=== PATIENT | male | born 1995 | race Caucasian/White ===

== ENCOUNTER 2017-09-15 05:04 | Inpatient (IN) | payer OTHER ==
[~2017-09-15] VITALS: Ht 165.1 cm; Wt 66.4 kg
[2017-09-15 11:33] VITALS: BP 125/65; PULSE 70; RESP 18; TEMP 98.7; O2SAT 96
[2017-09-15] MEDS: REMOVE OLD PATCH T-DERMAL SCH (15:51)
[2017-09-15] MEDS: NICOTINE 21 MG/24 HR PATCH T-DERMAL SCH (16:19)
[2017-09-15] MEDS: hydrOXYzine HCL 50 MG TAB PO SCH ×2 (16:19→21:15)
[2017-09-15 18:17] VITALS: BP 114/64; PULSE 71; RESP 18; TEMP 98.8; O2SAT 100
[2017-09-15] MEDS ORDERED: risperiDONE 1 MG TAB PO SCH (21:00)
[2017-09-15] MEDS ORDERED: diphenhydrAMINE HCL 50 MG CAP PO SCH (21:00)
[2017-09-16] MEDS: hydrOXYzine HCL 50 MG TAB PO SCH (04:00)
[2017-09-16 05:38] VITALS: BP 97/52; PULSE 62; RESP 18; TEMP 97.4; O2SAT 99
[2017-09-16 08:11] LABS: ANION GAP 7 MEQ/L (5-15); BICARBONATE 28.9 MEQ/L (21.0-32.0); BLOOD UREA NITROGEN 14 MG/DL (7-18); CHLORIDE 105 MEQ/L (98-107); GLOMERULAR FILTRATION RATE 126 ML/MIN (>89); POTASSIUM 4.2 MEQ/L (3.5-5.1); SODIUM (NA) 141 MEQ/L (136-145)
[2017-09-16 08:13] LABS: HDL CHOLESTEROL 53.2 MG/DL (40.0-60.0); LDL CHOLESTEROL 87 MG/DL (0-99)
[2017-09-16] MEDS: NICOTINE 21 MG/24 HR PATCH T-DERMAL SCH (09:00)
[2017-09-16] MEDS: REMOVE OLD PATCH T-DERMAL SCH (09:00)
--- NOTE | 2017-09-16 09:26 | HHI.HP ---
Provisional Diagnosis Admission Date Sep 15, 2017 at 11:11 [place] I. 1. Other psychotic disorder Rule out schizophrenia 2. Reported history of polysubstance abuse [place] II. Deferred Certification of Person's Competence To Provide Express and Informed Consent I have personally examined Rolando Saavedra , a person being served at [facility] on, Sep 16, 2017 09:26. Express and informed consent means consent voluntarily given in writing, by a competent person, after sufficient explanation and disclosure of the subject matter involved to enable the person to make a knowing and willful decision without any element of force, fraud, deceit, duress, or other form of constraint or coercion. This person is 18 years of age or older, is not now known to be incompetent to consent to treatment with a guardian advocate, and does not have a health care surrogate or proxy currently making medical treatment decisions. I have found this person to be one of the following: [x] Competent to provide express and informed consent, as defined above, for voluntary admission to this facility and is competent to provide express and informed consent for treatment. He/she has the consistent capacity to make well reasoned, willful, and knowing decisions concerning his or her medical or mental health treatment. The person fully and consistently understands the purpose of the admission for examination/placement and is fully capable of personally exercising all rights assured under [place] Incompetent to provide express and informed consent to voluntary admission, and this is incompetent to provide express and informed consent to treatment. The person must be transferred to involuntary status and a petition for a guardian advocate filed with the Circuit Court. [] Refusing to provide express and informed consent to voluntary admission but is competent to provide express and informed consent for treatment. The person must be discharged or transferred to involuntary status. Form shall be completed within 24 hours of a person's arrival at the receiving facility and filed in the clinical record of each person: 1. Admitted on a voluntary basis 2. Permitted to provide express and informed consent to his/her own treatment 3. Allowed to transfer from involuntary to voluntary status 4. Prior to permitting a person to consent to his or her own treatment after having been previously found incompetent to consent to treatment. History of Present Illness Capacity: Has Capacity Psych Chief Complaint: "I feel weird." HPI Mr. Saavedra is a 21-year-old male with a reported history of "psychosis mixed with bipolar disorder" who presents in transfer from [facility] under a Lara act. Reviewing documentation from [facility], I note that the patient presented there with complaints of paranoia and inability to sleep for 1 week. There is also notation that he has been hearing voices and pacing. Reviewing the electronic medical record, it appears this is patient's first visit to [facility]. Patient seen and examined with nurse Yusra and counselor Cristian. Chart reviewed. Collateral obtained yesterday by nurse Glenis reviewed. Case discussed with nursing staff. On my exam, patient presents as tense and fidgety. He says that he wants "to get on meds or sometimes I don't want to take meds." He reports that he has been taking Risperdal for about the last 3 weeks, although his adherence has reportedly been somewhat spotty. He says that he suffers from "panic attacks" which he describes as "a rupture, exceptially (sic), I feel good." Some neologisms noted. He appears internally preoccupied and reports hearing his family talking, although he struggles to describe the content of these voices. He does admit to CAH to self-injure in the past. He denies SI/HI presently. Mood is somewhat low. He endorses some ideas of reference related to media. Paranoia is present, and the patient notes "everything is a conspiracy." He denies any feelings of thought insertion or withdrawal. The remainder of the psychiatric ROS is negative. No physical complaints. Past psychiatric history: Patient reports previous diagnosis as noted above. He is not currently under the care of a psychiatrist. He reports that he was discharged about 2 weeks ago from [facility]. He endorses a history of 2 previous overdoses, apparently in response to command auditory hallucinations. Patient notes that he "stopped breathing" with Seroquel. Review of Systems ROS Limitations: Psychotic, Poor Historian Except as stated in HPI: all other systems reviewed are Neg Past Psych History Psychological trauma history Patient denies any history of abuse Violence risk - others (6 mos) Indeterminate. Patient is psychotic and unpredictable Violence risk - self (6 mos) Indeterminate. Patient is psychotic and unpredictable. He does endorse a history of command auditory hallucinations to self injure in the past. Substance Abuse History Drugs/Alcohol past 12 months Patient admits to a history of use of benzodiazepines, alcohol and cannabis within the last 6 months, although he denies any use of these substances within the last month or so. His urine toxicology from outside hospital was negative and his alcohol level was undetectable. Past Family Social History Coded Allergies: Seroquel (Unverified Adverse Reaction, Unknown, 09/16/17) "Stopped breathing" Past Medical History Patient denies any history of medical problems. In particular he denies any history of seizure. Current Medications Medications (Trade) Dose Ordered Sig/Binta Route Start Time Stop Time Status Last Admin (Atarax) 50 mg Q6H PO 09/15/17 16:00 09/15/17 21:15 (risperDAL) 1 mg BID PO 09/15/17 21:00 09/15/17 21:15 (Habitrol 21 Mg Patch.24 Hr) 1 patch DAILY T-DERMAL 09/15/17 15:51 09/15/17 16:19 Miscellaneous Information 1 DAILY T-DERMAL 09/15/17 15:51 (Benadryl) 50 mg HS PO 09/15/17 21:00 09/15/17 21:15 Family Psych History Denies any family history of serious mental illness or suicide. He does note that his father has a history of seizure disorder. Social History Patient lives with his older brother, younger sister and mother and father. He attended 12th grade but did not complete high school. He is not presently working. He denies any history. He denies any active legal issue but does endorse a history of fpc for domestic violence charges in May. He denies any access to guns or firearms. He is a Judaism. Patient's Strengths (min. 2) In a monitored setting. Verbally fluent. Physical Exam Physical examination completed at outside hospital. On my examination today, the patient appears to be in no acute physical distress. No motor abnormalities noted although the patient is a little fidgety. No signs of intoxication or withdrawal noted. Labs and vitals reviewed: Vital Signs Vital Signs Date Time Temp Pulse Resp B/P (MAP) Pulse Ox O2 Delivery O2 Flow Rate FiO2 09/16/17 05:38 97.4 62 18 97/52 (67) 99 Lab Results Test 09/15/17 15:48 11/17/17 07:10 Urine Opiates Screen NEG Urine Barbiturates Screen NEG Urine Amphetamines Screen NEG Urine Benzodiazepines Screen NEG Urine Cocaine Screen NEG Urine Cannabinoids Screen NEG Blood Urea Nitrogen 14 MG/DL Creatinine 0.79 MG/DL Random Glucose 92 MG/DL Calcium Level 9.4 MG/DL Sodium Level 141 MEQ/L Potassium Level 4.2 MEQ/L Chloride Level 105 MEQ/L Carbon Dioxide Level 28.9 MEQ/L Anion Gap 7 MEQ/L Estimat Glomerular Filtration Rate 126 ML/MIN Triglycerides Level 110 MG/DL Cholesterol Level 162 MG/DL LDL Cholesterol 87 MG/DL HDL Cholesterol 53.2 MG/DL Cholesterol/HDL Ratio 3.04 RATIO Above labs reviewed. Hemoglobin A1c is pending. Labs from outside hospital reviewed: CBC reveals mild leukocytosis at 10.95. CMP unremarkable. Tylenol level undetectable. Salicylate level undetectable. Alcohol level undetectable. Urine toxicology negative. Urinalysis bland. Mental Status Examination Appearance: Disheveled Consciousness: Alert Orientation: Person, Place Motor Activity: Normal gait Speech: Other (somewhat rambling but otherwise unremarkable) Language: Neologism Fund of Knowledge: Adequate Attention and Concentration: Easily Distracted Memory: Unremarkable Mood: Other ("low") Affect: Blunt Thought Process & Associations: Circumstantial Thought Content: Bizarre thinking Hallucination Type: Auditory Delusion Type: Paranoid, Other (ideas of reference) Suicidal Ideation: No (unreliable contract for safety) Suicidal Plan: No Suicidal Intention: No Homicidal Ideation: No Homicidal Plan: No Homicidal Intention: No Insight: Fair Judgment: Impulsive Assessment & Plan Problem List: (1) Other psychotic disorder not due to a substance or known physiological condition ICD Codes: F28 - Other psychotic disorder not due to a substance or known physiological condition Assessment & Plan 21-year-old male with psychiatric history as detailed above who presents in transfer from outside hospital under Lara act. On my examination today, the patient presents with signs of decompensated psychosis including hallucinations , ideas of reference and paranoia. He apparently has a history of psychotic illness and has been treated with Risperdal most recently, although his adherence has been only partial. Patient requires psychiatric hospitalization at this time for safety, observation and stabilization. Admit inpatient. Voluntary status. Titrate Risperdal to 2 mg twice daily to target psychotic symptoms. I have discussed with patient possibility of TIPTON. R /B/A d/w pt. Obtain previous treatment records to ensure that a first break psychosis workup has been completed. Ativan as needed for anxiety, Cogentin as needed for EPS, Benadryl as needed for sleep. Add on a CBC to existing laboratories to follow-up leukocytosis detected at outside hospital. EKG for QTc. Vitals every shift. Counselor to see and obtain collateral. Disposition planning. Estimated length of stay: 5-7 days. Discharge Planning Pending psychiatric stabilization Request HC Surrog/Guard Advoc?: No Oscar Turner MD Sep 16, 2017 09:26
[2017-09-16] MEDS ORDERED: BENZTROPINE MESYLATE 2 MG/2 ML VIAL IM PRN (11:00)
[2017-09-16] MEDS ORDERED: LORazepam 2 MG/ML VIAL IM PRN (11:00)
[2017-09-16] MEDS ORDERED: BENZTROPINE MESYLATE 1 MG TAB PO PRN (11:00)
[2017-09-16 11:17] LABS: AUTOMATED NEUTROPHIL # 3.4 TH/MM3 (1.8-7.7); BASOPHIL % 0.6 % (0.0-2.0); EOSINOPHIL # 0.3 TH/MM3 (0-0.4); EOSINOPHIL % 4.1 % (0.0-4.0); HEMATOCRIT 41.5 % (39.0-51.0); HEMO FLAGS DIFF FINAL; LYMPH % 42.5 % (9.0-44.0); LYMPHOCYTE # 3.3 TH/MM3 (1.0-4.8); MEAN CELL VOLUME 92.4 FL (80.0-100.0); MEAN CORPUSCULAR HEMOGLOBIN 30.8 PG (27.0-34.0); MEAN CORPUSCULAR HGB CONC 33.3 % (32.0-36.0); MONO % 8.9 % (0.0-8.0); NEUT % 43.9 % (16.0-70.0); PLATELET COUNT 322 TH/MM3 (150-450); RED CELL DISTRIBUTION WIDTH 12.5 % (11.6-17.2); WHITE BLOOD COUNT 7.7 TH/MM3 (4.0-11.0)
--- NOTE | 2017-09-16 12:40 | PD.TTN ---
Patient Problems 1. Discharge planning 2. Medication compliance 3. Knowledge deficit 4. Lack of coping skills Progress Toward Goals Provider Present: Dr. Abram Turner Provider Input: Pt is new to the unit and will be assessed including evaluation of medication regiment. Nurse(s) Present: Yusra Kendrick RN Nurse(s) Input: Pt will be assessed and monitored on unit for progress. Psychiatric Counselors Present: GUANAKO Montes Psych Therapist Input: Pt will be assessed using biopsychosocial assessment as pt is new to the unit. Group Spec/RT/OT/ARROYO Present: TOMASA Caraballo Group Spec/RT/OT/ARROYO Input: Pt is new to the unit and will be assessed. Discharge Plan Discharge plan will be formulated as treatment continues on unit. Documentation Scribe: GUANAKO Montes Jonathan LMHC Sep 16, 2017 12:40
[2017-09-16 18:04] LABS: HEMOGLOBIN A1a 1.3 %; HEMOGLOBIN A1b 0.6 %; HEMOGLOBIN Ao 88.5 %; HEMOGLOBIN F 0.6 %; HEMOGLOBIN LA1C 1.6 %; HEMOGLOBIN P3 2.8 %
[2017-09-16 18:11] VITALS: BP 117/58; PULSE 83; RESP 18; TEMP 97.9
[2017-09-16] MEDS: risperiDONE 1 MG TAB PO SCH (20:17)
[2017-09-16] MEDS: diphenhydrAMINE HCL 50 MG CAP PO PRN (20:17)
[2017-09-17 05:58] VITALS: BP 94/50; PULSE 83; RESP 18; TEMP 98.2; O2SAT 97
[2017-09-17] MEDS: NICOTINE 21 MG/24 HR PATCH T-DERMAL SCH (08:48)
[2017-09-17] MEDS: risperiDONE 1 MG TAB PO SCH ×2 (08:48→20:32)
[2017-09-17] MEDS: REMOVE OLD PATCH T-DERMAL SCH (08:57)
--- NOTE | 2017-09-17 09:16 | EKG ---
Date Performed: 09/16/2017 Time Performed: 16:20:31 PTAGE: 21 years EKG: Sinus rhythm WITH SINUS ARRHYTHMIA BORDERLINE RIGHT AXIS DEVIATION BORDERLINE ECG NO PREVIOUS TRACING DOCTOR: Oscar Glover Interpretating Date/Time 09/17/2017 09:15:00
--- NOTE | 2017-09-17 12:10 | HHI.PYPN ---
Subjective Chief Complaint: "I feel weird." Remarks Pt seen and discussed with staff. He remains highly internally stimulated with prominent AH and has had panic attacks on the unit. He has been withdrawn and isolating to room. He is compliant with medications and denies side effects. Mental Status Examination Appearance: Disheveled Consciousness: Alert Orientation: Person, Place Motor Activity: Normal gait Speech: Other (somewhat rambling but otherwise unremarkable) Language: Neologism Fund of Knowledge: Adequate Attention and Concentration: Easily Distracted Memory: Unremarkable Mood: Other ("low") Affect: Blunt Thought Process & Associations: Circumstantial Thought Content: Bizarre thinking Hallucination Type: Auditory Delusion Type: Paranoid, Other (ideas of reference) Suicidal Ideation: No (unreliable contract for safety) Suicidal Plan: No Suicidal Intention: No Homicidal Ideation: No Homicidal Plan: No Homicidal Intention: No Insight: Fair Judgment: Impulsive Results Vitals/IOs Vital Signs Date Time Temp Pulse Resp B/P (MAP) Pulse Ox O2 Delivery O2 Flow Rate FiO2 09/17/17 05:58 98.2 83 18 94/50 (65) 97 Assessment & Plan Problem List: (1) Other psychotic disorder not due to a substance or known physiological condition ICD Codes: F28 - Other psychotic disorder not due to a substance or known physiological condition Assessment & Plan Continue current tx plan. Estimated LOS: days Justification for Cont. Inpt. impairments in reality testing Request HC Surrog/Guard Advoc?: No Kaia Burger MD Sep 17, 2017 12:10
[2017-09-17 18:20] VITALS: BP 107/55; PULSE 86; RESP 17; TEMP 97.6; O2SAT 96
[2017-09-17] MEDS: diphenhydrAMINE HCL 50 MG CAP PO PRN (20:32)
[2017-09-17] MEDS: LORazepam 1 MG TAB PO PRN (20:33)
[2017-09-18 05:53] VITALS: BP 90/52; PULSE 94; RESP 17; TEMP 98.9; O2SAT 100
[2017-09-18] MEDS: risperiDONE 1 MG TAB PO SCH ×2 (08:16→21:00)
[2017-09-18] MEDS: REMOVE OLD PATCH T-DERMAL SCH (08:17)
[2017-09-18] MEDS: NICOTINE 21 MG/24 HR PATCH T-DERMAL SCH (08:17)
--- NOTE | 2017-09-18 11:49 | HHI.PYPN ---
Subjective Chief Complaint: "I feel weird." Remarks Pt seen and discussed with staff. He has been compliant with medications and denies side effects. He remains isolative to his room. He continues to present with significant internal stimulation. He voices paranoid ideations. No SI/HI Mental Status Examination Appearance: Disheveled Consciousness: Alert Orientation: Person, Place Motor Activity: Normal gait Speech: Other (somewhat rambling but otherwise unremarkable) Language: Neologism Fund of Knowledge: Adequate Attention and Concentration: Easily Distracted Memory: Unremarkable Mood: Other ("low") Affect: Blunt Thought Process & Associations: Circumstantial Thought Content: Bizarre thinking Hallucination Type: Auditory Delusion Type: Paranoid, Other (ideas of reference) Suicidal Ideation: No (unreliable contract for safety) Suicidal Plan: No Suicidal Intention: No Homicidal Ideation: No Homicidal Plan: No Homicidal Intention: No Insight: Fair Judgment: Impulsive Results Vitals/IOs Vital Signs Date Time Temp Pulse Resp B/P (MAP) Pulse Ox O2 Delivery O2 Flow Rate FiO2 09/18/17 05:53 98.9 94 17 90/52 (65) 100 Assessment & Plan Problem List: (1) Other psychotic disorder not due to a substance or known physiological condition ICD Codes: F28 - Other psychotic disorder not due to a substance or known physiological condition Assessment & Plan Continue current tx plan. Estimated LOS: days Justification for Cont. Inpt. psychosis Request HC Surrog/Guard Advoc?: No Kaia Burger MD Sep 18, 2017 11:49
[2017-09-18 15:54] VITALS: BP 113/59; PULSE 85; RESP 18; TEMP 98.3; O2SAT 97
[2017-09-18] MEDS: LORazepam 1 MG TAB PO PRN (21:19)
[2017-09-19 06:09] VITALS: BP 93/51; PULSE 71; RESP 16; TEMP 97.1; O2SAT 95
[2017-09-19] MEDS: LORazepam 1 MG TAB PO PRN (08:44)
[2017-09-19] MEDS: risperiDONE 1 MG TAB PO SCH ×2 (08:44→20:24)
[2017-09-19] MEDS: REMOVE OLD PATCH T-DERMAL SCH (08:44)
[2017-09-19] MEDS: NICOTINE 21 MG/24 HR PATCH T-DERMAL SCH (08:45)
--- NOTE | 2017-09-19 11:27 | HHI.PYPN ---
Subjective Chief Complaint: "I feel weird." Remarks Patient seen and examined with nurse. Chart reviewed. I see no records on paper chart for my review. Case discussed with nursing staff who reports the patient has been no behavioral problem but continues to respond to internal stimuli. On my examination today, the patient reports that Risperdal is helping to decrease his subjective anxiety. The patient is somewhat discharge focused. He remains a little internally stimulated but denies AVH. Thought process is tangential at time. I can elicit no ideas of reference, no paranoia , no other delusional material. He denies any suicidal or homicidal ideation. He denies any side effects from medications. I have discussed with him the risks and benefits of titration of Risperdal on the one hand to target residual symptoms and long-acting injectable antipsychotic on the other for improved adherence. After discussion of the risks and benefits, the patient declines both titration of his Risperdal and long-acting injectable. I note that the patient is tapping the ground with his feet, but he denies subjective restlessness or akathisia. He has no EPS on exam. No physical complaints. With the patient's permission, I have obtained collateral information from his father, Goran, at [phone]. Goran visited with patient over the weekend and finds him improved. He has no safety concerns about discharge home. He does note that patient has a history of problems with adherence to psychotropic medications. Despite this, Goran also is reluctant to have patient pursue long- acting injectable, preferring instead to give patient "another chance" with oral psychotropics. Goran notes when asked that despite several previous hospitalizations for psychosis, patient has never had a first break psychosis workup. Review of Systems ROS Limitations: Psychotic, Poor Historian Except as stated in HPI: all other systems reviewed are Neg Mental Status Examination Appearance: Other (grooming and hygiene fair) Consciousness: Alert Orientation: Person, Place (at least) Motor Activity: Normal gait, Other (no hand tremor, no cogwheeling, no dystonia , no dyskinesia noted.) Speech: Other (remains a little bit rambling but within normal limits for rate , tone and volume) Language: Adequate Fund of Knowledge: Adequate Attention and Concentration: Easily Distracted Memory: Unremarkable Mood: Other (no issues with mood) Affect: Blunt Thought Process & Associations: Circumstantial Thought Content: Bizarre thinking Hallucination Type: None Delusion Type: None Suicidal Ideation: No Suicidal Plan: No Suicidal Intention: No Homicidal Ideation: No Homicidal Plan: No Homicidal Intention: No Insight: Fair (at best) Judgment: Impulsive Results Labs Labs reviewed. No new labs. Vitals/IOs Vital Signs Date Time Temp Pulse Resp B/P (MAP) Pulse Ox O2 Delivery O2 Flow Rate FiO2 09/19/17 06:09 97.1 71 16 93/51 65 95 Assessment & Plan Problem List: (1) Other psychotic disorder not due to a substance or known physiological condition ICD Codes: F28 - Other psychotic disorder not due to a substance or known physiological condition Assessment & Plan I have recommended titration of Risperdal to target residual psychotic symptoms and recommended that the patient consider long-acting injectable. 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 Continue Risperdal 2 mg twice a day as ordered. I will undertake a first break psychosis workup as it appears that he has not previously had one: check MRI brain, EEG since father has seizure disorder, TSH, ammonia, RPR, HIV, B12. Continue to monitor on inpatient unit. Continue other medications and care as ordered. Justification for Cont. Inpt. Pursuing workup for medical causes of psychosis. Discharge Planning Revised ELOS: 1-3 days additional inpatient days. Request HC Surrog/Guard Advoc?: No Oscar Turner MD Sep 19, 2017 11:27
--- NOTE | 2017-09-19 12:44 | RADRPT ---
EXAM DATE/TIME: 09/19/2017 12:11 [facility] COMPARISON: No previous studies available for comparison. INDICATIONS : Psychosis. MEDICAL HISTORY : None. SURGICAL HISTORY : Tonsillectomy. ENCOUNTER: Initial ACUITY: 1 day PAIN SCORE: 11/09 LOCATION: Bilateral cranial TECHNIQUE: Multiplanar, multisequence MRI of the brain was performed without contrast. FINDINGS: CEREBRUM: The ventricles are normal for age. No evidence of midline shift, mass lesion, hemorrhage or acute in farction. No extraaxial fluid collections are seen. The pituitary gland and suprasellar cistern are normal in configuration. WHITE MATTER: No significant signal abnormalities are seen in the white matter. POSTERIOR FOSSA: The cerebellum and brainstem are intact. The 4th ventricle is midline. The cerebellopontine angle is unremarkable. The cerebellar tonsils are normal in position. DIFFUSION IMAGING: No focal areas of restricted diffusion are seen. No evidence of acute infarction. EXTRACRANIAL: The visualized portions of the orbits and paranasal sinuses are unremarkable. CONCLUSION: Normal examination. Rashi Camacho Jr., MD on September 19, 2017 at 12:40 Board Certified Radiologist. This report was verified electronically.
--- NOTE | 2017-09-19 15:40 | MG ---
cc: COCO SMITH M.D. Lab No: [id number] Date: 09/19/2017 : 1995 Age: 21 Sex: M Awake with photic stimulation. A 21-year-old male Lara Act'd for paranoia, inability to sleep for one week, hearing voices, previous suicide attempt, hallucinations, on Risperdal and Benadryl. DESCRIPTION OF RECORD The patient has overall alpha rhythm of 8.5 Hz, 20-40 microvolts. Some movement artifact but overall stable background. At times some mild slowing theta frequency, but overall normal alpha seen. No hyperventilation is done. Photic stimulation did elicit a posterior driving response. IMPRESSION Overall normal-appearing EEG without any epileptiform features in this one recording. Clinical correlation. Coco Smith MD DF/LINETTE /3:33 PM /3:38 PM
[2017-09-19 18:00] VITALS: BP 108/53; PULSE 85; RESP 16; TEMP 98.2; O2SAT 96
[2017-09-19] MEDS: diphenhydrAMINE HCL 50 MG CAP PO PRN (20:24)
[2017-09-20 05:43] VITALS: BP 117/68; PULSE 70; RESP 16; TEMP 97.6; O2SAT 97
[2017-09-20] MEDS: LORazepam 1 MG TAB PO PRN (08:31)
[2017-09-20] MEDS: REMOVE OLD PATCH T-DERMAL SCH (08:31)
[2017-09-20] MEDS: NICOTINE 21 MG/24 HR PATCH T-DERMAL SCH ×2 (08:31→14:23)
[2017-09-20] MEDS: risperiDONE 1 MG TAB PO SCH (08:31)
[2017-09-20] MEDS ORDERED: RISP2TAB2 PO (11:04)
--- NOTE | 2017-09-20 11:04 | HHI.DS ---
Psychiatry Discharge Summary Inpatient Psychiatric care?: Yes Advance Directive: No Reason Not Provided: deferred by patient Mental Health AdvanceDirective: No Health Care Proxy: No Admission Admission Date Sep 15, 2017 at 11:11 Admission Diagnosis: (1) Other psychotic disorder not due to a substance or known physiological condition ICD Code: F28 - Other psychotic disorder not due to a substance or known physiological condition Brief History Mr. Saavedra is a 21-year-old male with a reported history of "psychosis mixed with bipolar disorder" who presents in transfer from [facility] under a Lara act. Reviewing documentation from [facility], I note that the patient presented there with complaints of paranoia and inability to sleep for 1 week. There is also notation that he has been hearing voices and pacing. Reviewing the electronic medical record, it appears this is patient's first visit to [facility]. Patient seen and examined with nurse Yusra and counselor Cristian. Chart reviewed. Collateral obtained yesterday by nurse Glenis reviewed. Case discussed with nursing staff. On my exam, patient presents as tense and fidgety. He says that he wants "to get on meds or sometimes I don't want to take meds." He reports that he has been taking Risperdal for about the last 3 weeks, although his adherence has reportedly been somewhat spotty. He says that he suffers from "panic attacks" which he describes as "a rupture, exceptially (sic), I feel good." Some neologisms noted. He appears internally preoccupied and reports hearing his family talking, although he struggles to describe the content of these voices. He does admit to CAH to self-injure in the past. He denies SI/HI presently. Mood is somewhat low. He endorses some ideas of reference related to media. Paranoia is present, and the patient notes "everything is a conspiracy." He denies any feelings of thought insertion or withdrawal. The remainder of the psychiatric ROS is negative. No physical complaints. Past psychiatric history: Patient reports previous diagnosis as noted above. He is not currently under the care of a psychiatrist. He reports that he was discharged about 2 weeks ago from [facility]. He endorses a history of 2 previous overdoses, apparently in response to command auditory hallucinations. Patient notes that he "stopped breathing" with Seroquel. Tobacco Use In Past 30 Days: 5 or More Cigarettes/Day Alcohol Use: Monthly or Less Hospital Course Patient was admitted to a locked, inpatient psychiatric unit. Appropriate precautions were in place throughout patient's hospital stay. Patient was seen and examined on the unit by psychiatry and also visited by counselor. Psychotropic medications were adjusted. Patient tolerated medications well without side effects. Given that it appeared that it had not previously been done, a first break psychosis workup was undertaken. Besides some mild hyperammonemia, likely an incidental finding as there was no evidence of hyperammonemic encephalopathy on examination, this workup was unremarkable. There was no evidence of any suicidality or homicidality on the inpatient unit. Patient's behavior improved with the benefit of pharmacologic treatment. Collateral information was obtained from patient's father. On the day of discharge: Patient seen and examined with nurse. Chart reviewed. Case discussed with nurse and in treatment team. Patient did have an episode of yelling out expletives on the phone yesterday but otherwise has been no behavioral problem. He is noted to be medication compliant by nursing staff. On my examination today, the patient insists on discharge from the inpatient unit today. He denies any suicidal or homicidal ideation, intent or plan on direct questioning and contracts for safety. He denies any issues with mood and describes his mood presently as "balanced." I can elicit no depressive or hypomanic/manic symptoms. He denies any audiovisual hallucinations but does appear frankly internally stimulated. No reported command auditory hallucinations. He is a little bit watchful, but I can elicit no florence delusional material. He denies side effects from medications. He declines further adjustment to his Risperdal and likewise declines long-acting injectable antipsychotic at this time. He has no physical complaints. The counselor has obtained collateral from the patient's father on the day of discharge, and father is reportedly comfortable accepting the patient home today. Weighing the relevant factors and based on the available evidence, I buffer machine that the patient does not presently meet criteria for involuntary psychiatric hospitalization. That having been said, the patient remains somewhat symptomatic with respect to his psychosis, and I think that he with standard benefit from further inpatient psychiatric stabilization. I have strongly recommended that the patient remain on the unit voluntarily, but he has declined. I will therefore discharge the patient AGAINST MEDICAL ADVICE and have explained to him that he is leaving AGAINST MEDICAL ADVICE. Patient is to follow-up psychiatrically as arranged by counselor. Patient is also to follow-up with primary care. I have counseled the patient to abstain from substances of abuse going forward. I counseled the patient regarding warning signs for need to return to the psychiatric emergency room as part of a general safety plan. Results Blood Pressure 117 / 68 Vital Signs Date Time Temp Pulse Resp B/P (MAP) Pulse Ox O2 Delivery O2 Flow Rate FiO2 09/20/17 05:43 97.6 70 16 117/68 (84) 97 Laboratory Tests Test 09/19/17 20:47 Ammonia 45 MCMOL/L (11-32) Laboratory Results Test 09/16/17 07:10 Cholesterol Level 162 MG/DL (120-200) HDL Cholesterol 53.2 MG/DL (40.0-60.0) Hemoglobin A1c 4.4 % (4.3-6.0) LDL Cholesterol 87 MG/DL (0-99) Triglycerides Level 110 MG/DL (42-150) Summary of Procedures EEG read as normal Imaging Last Impressions Brain MRI 09/19/17 0000 Signed Impressions: Service Date/Time: Tuesday, September 19, 2017 12:11 - CONCLUSION: Normal examination. Rashi Camacho Jr., MD Pending results at discharge: No (HIV has resulted and is negative) Medications # of Antipsychotic meds at D/C: 1 Approp Antipsych med options 1 - Minimum of three failed multiple trials of monotherapy. 2 - Documented plan to taper to monotherapy due to previous use of multiple meds OR cross-taper in progress at D/C. 3 - Documentation of augmentation of Clozapine. 4 - Justification other than those listed in allowable values 1-3, document here : Discharge Discharge Date: Sep 20, 2017 Discharge Diagnosis: (1) Other psychotic disorder not due to a substance or known physiological condition Diagnosis: Principal (improved versus admission) ICD Code: F28 - Other psychotic disorder not due to a substance or known physiological condition Pt Condition on Discharge: Guarded (AMA discharge) Discharge Disposition: Discharge Home Discharge Instructions Diet Instructions: As Tolerated, No Restrictions Activities you can perform: Weight Bearing as Todd Scheduled Appointment: [facility] Appointment Date: Sep 21, 2017 Appointment Time: 8:00 am New Orders: AMMONIA - 1 Week New Medications: Risperidone (Risperidone) 2 Mg Tab 2 MG PO BID for Mental Health for 15 Days, #30 TAB 1 Refill Discharge Time > 30 minutes Mental Status Examination Appearance: Appropriate Consciousness: Alert Orientation: x4 Motor Activity: Normal gait, Other (no motoric abnormalities noted) Speech: Unremarkable, Other (remains a little bit rambling but within normal limits for rate, tone and volume) Language: Adequate Fund of Knowledge: Adequate Attention and Concentration: Easily Distracted Memory: Unremarkable Mood: Other ("balanced") Affect: Blunt Thought Process & Associations: Circumstantial Thought Content: Bizarre thinking Hallucination Type: Other (denies AVH but appears internally stimulated) Delusion Type: None Suicidal Ideation: No Suicidal Plan: No Suicidal Intention: No Homicidal Ideation: No Homicidal Plan: No Homicidal Intention: No Insight: Fair (at best) Judgment: Adequate (fair at best) Discharge/Advance Care Plan Health Problems: (1) Other psychotic disorder not due to a substance or known physiological condition Goals to promote your health * To prevent worsening of your condition and complications * To maintain your health at the optimal level Directions to meet your goals Take your medications as prescribed Follow your dietary instruction Follow activity as directed Keep your appointments as scheduled Take your immunizations and boosters as scheduled If your symptoms worsen call your PCP, if no PCP go to Urgent Care Center or Emergency Room For 23/05 questions related to your inpatient stay or results of tests pending at discharge, please contact Dr. Oscar Turner at Smoking is Dangerous to Your Health. Avoid second hand smoking Oscar Turner MD Sep 20, 2017 11:04
--- NOTE | 2017-09-20 11:17 | PD.TTN ---
Patient Problems 1. Discharge planning 2. Medication compliance 3. Knowledge deficit 4. Lack of coping skills Progress Toward Goals Provider Present: Dr. Abram Turner Provider Input: Pt is new to the unit and will be assessed including evaluation of medication regiment. 09/20- Pt appears stable and will be discharged home today. Nurse(s) Present: Yusra Kendrick RN Nurse(s) Input: Pt will be assessed and monitored on unit for progress. 09/20- Krupa Hernández Pt has been medication compliant, no behavioral problem on unit and appears stable. Psychiatric Counselors Present: GUANAKO Montes Psych Therapist Input: Pt will be assessed using biopsychosocial assessment as pt is new to the unit. 09/20- Pt reports he feels ready for discharge and denies any issues at this time. He will be discharged home today and his father will transport him. He has been referred to [facility] for outpatient follow up services. Group Spec/RT/OT/ARROYO Present: Kalyn Nunez, TOMASA Group Spec/RT/OT/ARROYO Input: Pt is new to the unit and will be assessed. 09/20- Pt often is observed visible on the unit. He does not attend groups. Discharge Plan Other Pt will be discharge home with his father and transported by father. He has been referred to [facility] in [place] for outpatient follow up services. He will be given any necessary scripts. Documentation Scribe: GUANAKO Montes Jonathan LMHC Sep 20, 2017 11:17
== END 2017-09-20 20:56 | disposition home or self-care (01) | DRG 885 ==
LOC: UNDOADMIN 09:03 → H270 09:03
PROVIDERS: ADMIT Psychiatry & Neurology Psychiatry; ATTEND Psychiatry & Neurology Psychiatry
DX: F22 Delusional disorders (principal); F31.9 Bipolar disorder, unspecified; F41.0 Panic disorder [episodic paroxysmal anxiety]; Z79.899 Other long term (current) drug therapy; G47.00 Insomnia, unspecified; Z82.0 Family history of epilepsy and other diseases of the nervous system
CPT/HCPCS: 70551; 80048; 80061; 80307; 82140; 82607; 83036; 84443; 85025; 86592; 86703; 93005; 95819; Q0163